=== PATIENT | female | born 1985 | race Caucasian/White ===

== ENCOUNTER 2023-06-11 08:25 | Outpatient (CLI) | payer OTHER ==
--- NOTE | 2023-06-11 15:02 | MRI Report ---
PROCEDURE: HIP WO - RT INDICATIONS: R HIP TENDINITIS TECHNIQUE: Noncontrast coronal T1 spin echo and STIR through the bony pelvis. Coronal and axial T2 fast spin ec ho with fat saturation, sagittal T1 spin echo, and oblique axial T2 fast spin echo with fat saturatio n through the hip. COMPARISON: None. FINDINGS: Image quality: Excellent. Bones and joints: Asymmetric mild to moderate right hip joint osteoarthritic changes are seen with simon perior joint space narrowing, subchondral sclerosis and prominent lateral marginal osteophyte formati on which can be seen associated with pincer-type femoral acetabular impingement. There is no fracture or dislocation. No avascular necrosis of the femoral heads. The visualized lower lumbar spine appear s normally aligned. Tendons: The gluteus medius and minimus tendons appear intact, without associated muscle atrophy. T he iliopsoas tendon appears intact, without adjacent bursal fluid collections. The origin of the ham string tendon is intact at the ischial tuberosity. Labrum and cartilage: Diffuse thinning of cartilage along superior aspect of right femoral head is no nusrat. Signal abnormality and fraying of superior anterior labrum at 12 to 1:00 position is noted. Soft tissues: Visualized muscles demonstrate normal bulk and internal signal. The proximal sciatic neurovascular bundle appears normal adjacent to the hamstring tendons. No free pelvic fluid. Bladde r wall thickness is normal. Genitourinary structures and bowel loops appear normal where visualized. IMPRESSION: 1. Asymmetric mild to moderate right hip joint osteoarthritis. No right hip fracture or dislocation. No evidence of avascular necrosis of femoral head. Prominent lateral marginal osteophyte formation wh ich can be seen associated with pincer-type femoral acetabular impingement. 2. No gross right hip muscle or tendon signal abnormalities. 3. Suggestion of superior anterior right hip labral tear at 12 to 1:00 position. Reviewed by: Dami Pierson MD on 06/11/2023 3:01 PM PDT Approved by: Dami Pierson MD on 06/11/2023 3:01 PM PDT Station ID: [id number]
== END 2023-06-11 08:26 | disposition home or self-care (01) ==
LOC: DI 08:25
DX: M16.11 Unilateral primary osteoarthritis, right hip (principal)

== ENCOUNTER 2024-02-11 12:19 | Emergency (ER) | payer OTHER ==
--- NOTE | 2024-02-11 13:17 | ED Physician Documentation ---
PD HPI MHE - Stated complaint Stated Complaint: PANIC ATTACK - Chief complaint Chief Complaint: MHE - Additional information Additional information: 38-year-old female presents emergency department for panic attack. Patient says that she has had a panic attack before but it has been a very long time. 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 She feels like no one at work is listening to her she also has children at home and feels like today she finally met her breaking point. She denies any suicidal homicidal ideation but she also does report that she has been having some passive thoughts of just driving off into a bridge. She is not taking any medications at this point in time that she endorses to myself for anxiety depression. 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 HEENT: Tonsil/Adenoidectomy - Present Medications Home Medications: Ambulatory Orders Medication Instructions Recorded Confirmed Celecoxib 200 mg PO DAILY 02/11/24 02/11/24 hydrOXYzine HCL [Hydroxyzine HCl] 25 mg PO TID PRN #15 tablet 02/11/24 traZODone [Desyrel] 50 mg PO HS #10 tablet 02/11/24 - Allergies Allergies/Adverse Reactions: Allergies Allergy/AdvReac Type Severity Reaction Status Date / Time No Known Drug Allergies Allergy Verified 02/11/24 12:34 - Social History Does the pt smoke?: No Smoking Status: Never smoker Does the pt drink ETOH?: No Does the pt have substance abuse?: No - Immunizations Immunizations are current?: Yes PD ED PE NORMAL - Vitals Vital signs reviewed: Yes - General General: Alert and oriented X 3, Well developed/nourished, Other (anxious) - HEENT HEENT: Atraumatic, PERRL PD ED PE EXPANDED - Psych Psych: Depressed, Tearful, Anxious, Pressured speech. No: Intoxicated / AOB, Suicidal, Homicidal, Withdrawn, Poor eye contact, Non verbal, Agitated, Combative, Manic, Auditory hallucinations, Visual hallucinations, Tactile hallucinations Results - Vitals Vitals: Vital Signs - 24 hr 02/11/24 02/11/24 12:29 15:20 Temperature 36.7 C 36.8 C Heart Rate 90 80 Respiratory 40 H 18 Rate Blood Pressure 139/89 H 127/78 O2 Saturation 99 100 Oxygen O2 Source Room air PD Medical Decision Making - ED course ED course: 38-year-old female presents emergency department for panic attack. Patient says that she is feeling quite stressed out at work. She was evaluated by social work and they are recommending outpatient follow-up and therapy. Patient was given hydroxyzine here in the emergency department and did report that this did significantly help her symptoms. Patient also reports that she is been having a hard time sleeping at night she has been taking up to 40 mg of melatonin nightly nursing did reeducate patient on how much melatonin safe to take she is given a prescription of trazodone to start taking nightly to help with her sleep until she is able to follow with her primary care provider for additional medications as well as hydroxyzine for her anxiety for her to take up to 3 times a day as needed these medications were sent to her preferred pharmacy she is given return precautions patient feels safe for discharge at this point in time all questions answered patient is to arrange outpatient therapy.She understands of suicidal homicidal ideations or to start she understands to come back to the emergency department. Departure - Departure Disposition: 01 Home, Self Care Clinical Impression: Panic attack Instructions: ED Stress React, ED Panic Attack Prescriptions: traZODone [Desyrel] 50 mg PO HS #10 tablet hydrOXYzine HCL [Hydroxyzine HCl] 25 mg PO TID PRN #15 tablet PRN Reason: Anxiety Comments: Thank you for trusting us with your care. It sounds like social service director has been helpful with giving you the resources that you need for follow-up and more additional mental health support. I sent a prescription to [facility] in [place] for hydroxyzine you can take this up to 3 times a day as needed for anxiety and I have also sent a prescription of trazodone that you can take nightly for insomnia. Please help with your primary care provider soon as possible but getting back onto an antidepressant and getting into therapy soon as possible. Please come back to the ER if you are starting to notice any worsening signs symptoms of panic or if you start to develop any suicidal homicidal ideation. Wishing you the best. Forms: PCP List Discharge Date/Time: 02/11/24 15:20
[2024-02-11] MEDS: hydrOXYzine PAMOATE 25 MG CAPSULE PO STA (13:25)
[2024-02-11 15:24] VITALS: BP 127/78; O2SAT 100
== END 2024-02-11 15:20 | disposition home or self-care (01) ==
LOC: ED 12:19
DX: F41.0 Panic disorder [episodic paroxysmal anxiety] (principal); F41.9 Anxiety disorder, unspecified; G47.9 Sleep disorder, unspecified; Z56.9 Unspecified problems related to employment
CPT/HCPCS: 99283; 99284; A9270